=== PATIENT | female | born 1970 | race Two or more races ===

== ENCOUNTER 2024-03-08 21:43 | Emergency (ER) | payer MEDICAID, OTHER ==
[~2024-03-08] VITALS: Ht 152.4 cm; Wt 86.2 kg
[2024-03-09] MEDS ORDERED: IBUPROFEN 400 MG TABLET ONE (00:19)
[2024-03-09] MEDS: IBUPROFEN 400 MG TABLET PO ONE (00:20)
[2024-03-09 02:30] VITALS: BP 132/88; TEMP 98; O2SAT 98
== END 2024-03-09 02:31 | disposition home or self-care (01) ==
LOC: ER 21:48
DX: J06.9 Acute upper respiratory infection, unspecified (principal); R07.89 Other chest pain; R05.9 Cough, unspecified
CPT/HCPCS: 71045-TC